=== PATIENT | male | born 1995 | race African-American/Black ===

== ENCOUNTER 2017-01-05 18:20 | Emergency (ER) | payer OTHER ==
[2017-01-05 18:31] VITALS: BP 139/85
--- NOTE | 2017-01-05 19:14 | ER Document Report ---
HPI - HPI Patient complains to provider of: finger laceration Onset: This evening Onset/Duration: Sudden Quality of pain: Achy Pain Level: 3 Context: Patient presents with laceration to the palmar aspect at this right index finger. Patient reports he was cooking dinner tried to cut some frozen garlikc bread and cut his finger. He reports it happened at approximately 1700. The area is still bleeding. Tetanus is up-to-date. Denies past medical history. Pt is left handed Associated Symptoms: None Exacerbated by: Denies Relieved by: Denies Similar symptoms previously: No Recently seen / treated by doctor: No - REPRODUCTIVE Reproductive: DENIES: : - DERM Skin Color: Normal Past Medical History - General Information source: Patient - Social History Smoking Status: Never Smoker Chew tobacco use (# tins/day): No Frequency of alcohol use: None Drug Abuse: None Occupation: [employer] – [place] Lives with: Family Family History: Reviewed & Not Pertinent Patient has suicidal ideation: No Patient has homicidal ideation: No - Medical History Medical History: Negative Renal/ Medical History: Denies: Hx Peritoneal Dialysis Surgical Hx: Negative - Immunizations Immunizations up to date: Yes Hx Diphtheria, Pertussis, Tetanus Vaccination: Yes Vertical Provider Document - CONSTITUTIONAL Agree With Documented VS: Yes Exam Limitations: No Limitations General Appearance: WD/WN, No Apparent Distress - INFECTION CONTROL TRAVEL OUTSIDE OF THE [place] IN LAST 30 DAYS: No - HEENT HEENT: Atraumatic, Normocephalic - NECK Neck: Normal Inspection, Supple. negative: Lymphadenopathy-Left, Lymphadenopathy-Right - RESPIRATORY Respiratory: Breath Sounds Normal O2 Sat by Pulse Oximetry: 100 - CARDIOVASCULAR Cardiovascular: Regular Rate - MUSCULOSKELETAL/EXTREMETIES Musculoskeletal/Extremeties: MAEW, FROM, Tender - NEURO Level of Consciousness: Awake, Alert - DERM Integumentary: Warm, Dry, Laceration - right index superficial laceration 5mm well approximated, slight bleeding Course - Vital Signs Vital signs: Temp Pulse Resp BP Pulse Ox 98.5 F 67 16 139/85 H 100 01/05/17 18:30 01/05/17 18:30 01/05/17 18:30 01/05/17 18:30 01/05/17 18:30 Procedures - Laceration/Wound Repair Right 2nd digit Wound length (cm): 0.5 Wound's Depth, Shape: Superficial Laceration pre-procedure: Shur-Clens applied Wound Repaired With: Steri-strips Hands front picture: 1 - 5mm superficial linear laceration, flex/extends without problem, brisk cap refill, good radial pulse, slight oozing when area manipulated Discharge - Discharge Clinical Impression: Finger laceration, Elevated blood pressure reading Condition: Stable Disposition: HOME, SELF-CARE Instructions: Soap Cleansing ([facility]), Care of Steri-Strip Closure ([facility]) Additional Instructions: *You have been treated for a superficial laceration *Monitor the site for signs of infection such as increasing pain, redness, swelling, warmth *Wash the site twice daily, keep *Follow up with a primary care provider within 5 days *Return to ED for signs of infection, worsening condition, changes, needs Forms: Elevated Blood Pressure
== END 2017-01-05 19:31 | disposition home or self-care (01) ==
LOC: ER 18:20
DX: S61.210A Laceration without foreign body of right index finger without damage to nail, initial encounter (principal); W26.0XXA Contact with knife, initial encounter; Y93.G3 Activity, cooking and baking; R03.0 Elevated blood-pressure reading, without diagnosis of hypertension
CPT/HCPCS: 99282